=== PATIENT | male | born 1960 ===

== ENCOUNTER 2025-09-15 06:11 | Day surgery (SDC) | payer OTHER, SELFPAY | END 2025-09-15 10:07 | disposition home or self-care (01) | LOC: GI 06:11 | PROVIDERS: ATTENDING PHYSICIAN Internal Medicine Gastroenterology; FAMILY PHYSICIAN Family Medicine | DX: Z12.11 Encounter for screening for malignant neoplasm of colon (principal); K57.30 Diverticulosis of large intestine without perforation or abscess without bleeding; Z87.19 Personal history of other diseases of the digestive system; Z90.49 Acquired absence of other specified parts of digestive tract; K64.8 Other hemorrhoids; Z86.0100 Personal history of colon polyps, unspecified | CPT/HCPCS: G0105 ==